=== PATIENT | male | born 1965 | race Caucasian/White ===

== ENCOUNTER → 2017-01-31 | Outpatient (CLI) | payer BC ==
[2017-02-02 00:07] LABS: Lyme Disease IgG/IgM Antibodie <0.91 ISR (0.00-0.90); Lyme Disease IgM Ab Quantitati <0.80 index (0.00-0.79)
== END ==
LOC: M WUC 10:30
PROVIDERS: ATTEND Physician Assistant
DX: S70.362A Insect bite (nonvenomous), left thigh, initial encounter (principal)

== ENCOUNTER → 2022-01-23 | Outpatient (CLI) | payer BC, OTHER, SELFPAY | LOC: M WHC 10:02 | DX: R19.00 Intra-abdominal and pelvic swelling, mass and lump, unspecified site (principal) ==